=== PATIENT | male | born 1995 | race Caucasian/White ===

== ENCOUNTER → 2018-03-06 | Outpatient (CLI) | payer OTHER ==
--- NOTE | 2018-03-06 13:01 | RADIOLOGY IMAGING REPORT ---
FACILITY: [facility] PATIENT NAME: Peter Gorman : 1995 MR: [id number] V: [id number] EXAM DATE: ORDERING PHYSICIAN: CONSUELO PATHAK TECHNOLOGIST: Location: [facility] - [place] Patient: Peter Gorman : 1995 Visit/Account:[id number] Date of Sevice: 03/06/2018 2 VIEWS CHEST INDICATION: Positive PPD. COMPARISON: None available FINDINGS: Cardiomediastinal silhouette and pulmonary vessels within normal limits. There is no focal infiltrate or lobar consolidation. There is no pneumothorax or pleural effusion. No nodule. Upper abdomen is unremarkable. No acute bony abnormality. IMPRESSION: 1. No indication of acute or active disease. Report Dictated By: Jd Bowers at 03/06/2018 12:54 PM Report E-Signed By: Jd Boewrs at 03/06/2018 12:56 PM WSN:[id number]
== END ==
LOC: RAD 11:14
PROVIDERS: ATTEND Family Medicine
DX: R76.11 Nonspecific reaction to tuberculin skin test without active tuberculosis (principal)
CPT/HCPCS: 71046